=== PATIENT | female | born 1960 | race Caucasian/White ===

== ENCOUNTER 2016-12-18 09:00 | Day surgery (SDC) | payer OTHER ==
[2016-12-18] VITALS (8 sets, daily range): BP systolic 105–145; BP diastolic 56–80; PULSE 63–86; RESP 12–18; O2SAT 93–100
[~2016-12-18] VITALS: Ht 164.5 cm; Wt 91.4 kg
[~2016-12-18 09:00] MED LIST: CALC-1021 PO; CHOL200047 PO; CITA20TA PO; CYAN50002 SL; CeFAZolin Inj 2 GM in IV Premix 1 EACH IV ONE; FISH400C2 PO; ZOV800 PO
[2016-12-18] MEDS ORDERED: Propofol 10,000 mCg/mL 20 mL Inj ONE (09:01)
[2016-12-18] MEDS ORDERED: Dexamethasone 4 mg/mL Inj ONE (09:01)
[2016-12-18] MEDS ORDERED: fentaNYL-PF 50 mCg/mL 2 mL Inj ONE (09:01)
[2016-12-18] MEDS ORDERED: Ondansetron 2 mg/mL 2 mL Inj ONE (09:01)
[2016-12-18] MEDS ORDERED: Lactated Ringer's 1,000 ML IV ONE (09:05)
[2016-12-18] MEDS ORDERED: RANI150T11 PO (09:21)
[2016-12-18] MEDS ORDERED: Lactated Ringer's 500 ML IV PRN (10:42)
[2016-12-18] MEDS ORDERED: Lactated Ringer's 1,000 ML IV SCH (10:42)
--- NOTE | 2016-12-18 10:42 | PCM.HPANE ---
Patient Data Surgeon Admitting Provider: Attending Provider:Kb Kim MD Primary Care Physician:Erika Cox CNM Other Provider:Gurmeet Gallegos Anesthesia Reason for Visit Left Breast Dcis Ht/WT & BMI Height (Feet): 5 Height (Inches): 4.75 Weight (Kilograms): 88.45 Body Mass Index 32.00 Allergies Coded Allergies: Sulfa (Sulfonamide Antibiotics) (Verified Allergy, Unknown, rash, difficulty breathing, 12/17/16) Past Anesthesia History Anesthesia History: Denies:: Abnormal Airway, Anesthesia Reactions ("takes a lot more for me"), Difficult Intubation, Fam Anesthesia Reaction Diabetes History Hx Diabetes?: No MRSA MRSA: No Medications Hypertension Medication: No Home Meds Incl Beta Lacey: No Reported Medications Ranitidine (Zantac)150 Mg [id number] Mg PO DAILY 12/18/16 Acyclovir 800 Mg Sks815 Mg PO DAILY Ref 0 12/04/16 Cyanocobalamin (Vitamin B-12) (Vitamin B-12)5,000 Mcg Tab.subl5,000 Mcg SL 12/04/16 Calcium Carbonate/Vitamin D3 (Oyster Shell Calcium + D Cplt)500 Mg-200 Tablet1 Each PO 12/04/16 Cholecalciferol (Vitamin D3) (Vitamin D3)2,000 Unit Capsule2,000 Unit PO 12/04/16 Fish Oil/Borage/Flax/Om3,6,9#1 (Triple [place] Complex 3-6-9)400 Mg [id number] Mg PO 12/04/16 Citalopram Hydrobromide (Celexa)20 Mg Xowedu20 Mg PO DAILY Ref 0 12/04/16 History History of ENT Problems?: No HEENT History: Denies:: Abnormal Airway Cataracts Difficult Intubation Dysphagia Glaucoma Hearing Problem (some hearing loss) Sinus Problem TMJ Hx of Heart Problems?: No Cardiovascular History: Denies:: AICD Abdominal Aortic Aneurism Atrial Fibrillation Chest Pain Congestive Heart Failure Coronary Artery Disease Edema Heart Murmur Hypertension Irregular Heartbeat Pacemaker Peripheral Vascular Rheumatic Fever Hx of Respiratory Problem?: No Respiratory History: Denies:: Asthma COPD Emphysema Oxygen Administration Pneumonia Tuberculosis Use of C-PAP Machine Use of Inhalers / NEBS Hx Neurologic Problems?: No Neurological History: Denies:: Alzheimer's Disease CVA Dementia Dizziness Headaches Multiple Sclerosis Parkinson's Disease Seizures TIA Hx of GI Problems?: Yes Gastrointestinal History: Positive for:: Heartburn (some heartburn recently) Denies:: Gall Bladder Disease Gastroesphageal Reflux Gastrointestinal Bleeding Hepatitis Hiatal Hernia Liver Disease Hx of Problems?: No Genitourinary History: Denies:: Kidney Stones Urinary Tract Infection Female Hx: Positive for:: Problems with Breasts? (left breast cancer current problem) Denies:: Currently Skin History: Denies:: History Skin Disorders? Pressure Ulcers Hx Musculoskeletal Problems?: No Musculoskeletal History: Denies:: Back Injury Fibromyalgia Joint Replacement Musculoskeletal Trauma Myasthenia Gravis Osteoarthritis Rheumatoid Arthritis Hx of Psycho/Social Problems?: Yes Psycho Social History: Positive for:: Hx Depression Hx Surgeries?: Yes (LEEP, cervical cone ) Hx Any Other Health Problems?: Yes Other History: Positive for:: Cancer (left breast current , hx of cervical 10 years ago) Denies:: Thyroid Disease History Blood Transfusions: Positive for:: Accept Blood Products? Denies:: Blood Transfusions Hx Diabetes: No Hx Alcohol Use: YesAlcoholic Drinks Per Day: 2 glasses weekHx Substance Use: No Smoking Status: Former Smoker Have You Smoked inLast 12 mo: No Stop/Bang S-Snoring: Do You Snore Loudly: No T-Tired: feel tired, fatigued: No O-Obsered: Observed not breath: No P-Blood Pressure: treated: No B- Body Mass Index > 35 kg/m2: No A- Age over 50: Yes N- Neck Large Circumference: No Risk Assessment Category Category 1A: Patient has history of documented sleep apnea, and HAS NOT received any narcotic, sedative or anesthesia administration during this stay. Category 1B: Patient has history of documented sleep apnea, and HAS received any narcotic , sedative or anesthesia administration during this stay Category 2: Patient has SUSPECTED Obstructive Sleep Apnea, and HAS received any narcotic , sedative or anesthesia administration during this stay. Category 3: Patient has SUSPECTED Obstructive Sleep Apnea and HAS NOT received narcotic, sedative or anesthesia administration during this stay. Category 4: Outpatient in Procedural Areas with known sleep apnea or who screen positive for High Risk via the STOP/BANG questionnaire. Exam Exam General Appearance: Alert, Oriented X3, Cooperative, No Acute Distress HEENT/AIRWAY: MP 2 Lungs: Clear to Auscultation, Normal Air Movement Heart: Exam Unremarkable, Regular Rate/Rhythm, No Murmurs/Rubs/Gallops Meds/Labs/Diagnostics Admission Meds Current Medications Lactated Ringer's (Lr) 1,000 ml @ ud STK-MED ONCE IV Last administered on 12/18t 09:05; Start 12/18/16 at 09:05; Stop 12/18/16 at 09:06; Status DC Plan Impression Patient chart reviewed, patient interviewed and anesthestic plan with risks, benefits, and alternatives discussed, and informed consent obtained. ASA Physical Status: ASA2 Mod Systemic Disease Anesthetic Plan: GA Bene/Risks/Altern/Consents: Yes HP Complete Prior to Induction: Yes Miguel Hart MD Dec 18, 2016 09:46
[2016-12-18] MEDS ORDERED: Dexamethasone 4 mg/mL Inj IVPUSH PRN (10:45)
[2016-12-18] MEDS ORDERED: fentaNYL-PF 50 mCg/mL 2 mL Inj IVPUSH PRN (10:45)
[2016-12-18] MEDS ORDERED: Phenylephrine 10,000 mCg/mL Inj IVPUSH PRN (10:45)
[2016-12-18] MEDS ORDERED: EPHEDrine Sulfate 50 mg/mL Inj IVPUSH PRN (10:45)
[2016-12-18] MEDS ORDERED: Ondansetron 2 mg/mL 2 mL Inj IVPUSH PRN (10:45)
[2016-12-18] MEDS ORDERED: HYDROmorphone 1 mg/mL Inj IVPUSH PRN (10:45)
[2016-12-18] MEDS ORDERED: MetoCLOpramide 5 mg/mL 2 mL Inj IVPUSH PRN (10:45)
[2016-12-18] MEDS ORDERED: Bupivacaine-MPF 0.5% W/EPI 30 mL Inj INJ ONE (11:05)
[2016-12-18] MEDS ORDERED: HYDROcodone-APAP 5-325 mg Tablet PO PRN (11:45)
--- NOTE | 2016-12-18 11:46 | PCM.DISURG ---
Surgical Discharge Instruction Date of Service Dec 18, 2016 Dates of Hospitalization Date of Hospital Admission Providers Admitting Physician: Primary Care Physician: Erika Cox CNM Attending Physician: Kb Kim MD Discharge Diagnosis Discharge Diagnosis Left breast DCIS Diet Discharge Diet: No restrictions Activity Discharge Activity-General: No restrictions, Activity as pain allows Dressing and Incisional Care Dressing Care: Allow Steri Stripes to fall off, Remove outer dressing after 24 hrs Hygiene: May shower after (24 hours) Follow Up Plan Follow Up Plan With Dr. Kim in surgery clinic in 10-14 days Call your provider for: Fever (over 101.5), Discharge @ incision, pus discharge Kb Kim MD Dec 18, 2016 11:46
--- NOTE | 2016-12-18 11:53 | PCM.SURGOP ---
Surgical Operative Report Date of Service: Dec 18, 2016 Pre Operative Diagnosis Left breast DCIS Post Operative Diagnosis Same Procedure: Wire localized left partial mastectomy Surgeon and Property Portfolio Officer: Surgeon: Kb Kim MD Assistants: Be Darling PA-C Indication for Procedure 56-year-old woman who had a new finding of heterogeneous calcifications in the left breast 11 o'clock position on screening mammogram. 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 Her breast MRI showed a 3 cm area of enhancement correlating to the biopsy-proven DCIS. There was an additional 6 mm enhancing lesion in the 7 o'clock position of the left breast, and a 1.2 cm enhancing lesion in the 12 o'clock position of the left breast. Ultrasound was performed of both additional areas, which was negative. Six-month follow-up breast MRI was recommended. After discussion of risks and benefits, she agreed to proceed with wire localized left partial mastectomy. Findings: The mammographic lesion was successfully localized. Procedure Details Preoperatively, the patient underwent wire localization in the breast [facility]. She was then brought to the operating room where she underwent smooth induction of general anesthesia with an LMA. She was placed in the supine position with the left arm out, and was prepped and draped in wide sterile fashion. A procedural pause was performed according to the SCOAP checklist, and all were found to be in agreement. A transverse incision was made in the upper inner quadrant of the left breast, encompassing the wire into the incision. Skin flaps were raised superiorly and inferiorly. Circumferential dissection was carried out with electrocautery, using the wire as a guide. Dissection was carried down to the pectoralis muscle as the posterior margin. The left breast tissue was dissected free, oriented with suture, and a specimen radiograph was obtained. This confirmed that the mammographic lesion had been successfully localized. It was sent for permanent pathology labeled as left breast tissue. A separate inferior margin was obtained, because the tip of the wire was close to the inferior aspect of the tissue. This was oriented with suture, and sent for permanent pathology. The cavity was marked with medium hemoclips circumferentially. The breast parenchyma was closed with a single interrupted 3-0 Vicryl suture. The skin incision was closed with a running 4-0 Vicryl subcuticular stitch. Steri- Strips and sterile dressings were applied. At the end of the case all needle and sponge counts were correct 2. The patient was awakened from anesthesia without difficulty, and taken to the recovery room in satisfactory condition, having tolerated the procedure well. Complications There were no periprocedural complications identified. Surgical Specimen Removed: Yes Specimen sent to Pathology: Yes Surgical Specimen description: Left breast tissue. Left breast inferior margin. Anesthetic Plan: GA Grafts, Implants: None Output, Estimated Blood Loss: 50 Blood Administration during onvoa: No Drains: None Catheters: None copies to: Macie Baldwin MD; Erika Cox CNM; Glen Serna MD, Joshua D MD Dec 18, 2016 11:53
--- NOTE | 2016-12-18 12:55 | PCM.ANEP1 ---
Post Anesthesia Phase 1 PACU Phase 1 Assessment Date of Service: Dec 18, 2016 Vital Signs Vital Signs Date Time Temp Pulse Resp B/P Pulse Ox O2 Delivery O2 Flow Rate FiO2 12/18/16 12:31 71 16 106/56 96 Room Air 12/18/16 12:15 36.4 70 12 107/69 94 Room Air 12/18/16 12:00 83 12 119/65 93 Room Air 12/18/16 11:55 85 13 131/70 95 Room Air 12/18/16 11:50 36.1 86 17 145/74 98 Room Air 12/18/16 09:46 36.1 63 18 109/67 96 Room Air Anesthetic Administered: GA Level of Alertness: Awake, talking JIMENEZ's with Equal Strength: Yes Pain: No Nausea or Vomiting: No Oxygen Delivery: Room Air Lungs: Clear to Auscultation, Normal Air Movement Miguel Hart MD Dec 18, 2016 12:55
--- NOTE | 2016-12-18 12:58 | PCM.ANEP2 ---
Post Anesthesia Evaluation ASA/CMS Post Anesthesia VS in Patient's Normal Range?: Yes Resp Stable; Airway Patent?: Yes CV Function & Hydration Stable: Yes Mental Status Recovered?: Yes Pain control Satisfactory?: Yes N/V Control Satisfactory?: Yes Miguel Hart MD Dec 18, 2016 12:58
--- NOTE | 2016-12-19 07:19 | DRSVH ---
SPECIMEN LEFT BREAST: 12/18/2016 CLINICAL: Breast specimen. Correlation is made to exams dated: 12/18/2016 localization, 11/23/2016 stereotactic biopsy, 11/13/2016 mammogram, and 11/12/2016 mammogram - [facility]. A lumpectomy specimen was imaged for the previous biopsy site located in the left breast at 11 o'chay ck posterior depth. This was described on the previous mammography and biopsy reports. IMPRESSION: SPECIMEN The imaged specimen includes a biopsy clip and the distal portion of the localization wire. Waiting for pathology results. A final report will be issued when these become available. This exam was interpreted at Station ID: [id number]. Ed kumar/deep:12/18/2016 12:19:35 copy to: OXANA GAN Additional referring physicians: BRE AVILA
--- NOTE | 2016-12-21 13:44 | PATH ---
SURGICAL PATHOLOGY Attending Physician:Marcel Jorge CASE STATUS: Signed Out PATIENT NAME: BECKI BELTRAN PID: [id number] : 1960 DATE COLLECTED:12/18/2016 20:58 SPECIMEN: 1: Breast, Simple Mastectomy (w/o lymph nodes) 2: Breast Margin CLINICAL HISTORY: LEFT BREAST DUCTAL CARCINOMA IN SITU 1). LEFT BREAST TISSUE SHORT SUPERIOR, LONG LATERAL, OUT 12:25 TIF 11:28 2). INFERIOR MARGIN LEFT BREAST LONG LATERAL, SHORT POSTERIOR, OUT 11:31 TIF 11:32 FINAL DIAGNOSIS: 1.LEFT BREAST, EXCISION WITH WIRE-GUIDED LOCALIZATION: DUCTAL CARCINOMA IN SITU. Size (extent) of DCIS: 5 MM Histologic type: DUCTAL CARCINOMA IN SITU Architectural patterns: CRIBRIFORM Nuclear grade: GRADE 1 (LOW) Necrosis: ABSENT Margins: ALL MARGINS ARE UNINVOLVED BY DCIS. THE CLOSEST MARGIN IS THE MEDIAL MARGIN, 5 MM FROM DCIS. ALL OTHER MARGINS ARE GREATER THAN 10 MM. Pathologic staging: (pTNM, AJCC, 7th ed.): pTis (DCIS), pNX Ancillary studies: ESTROGEN RECEPTOR AND PROGESTERONE RECEPTOR TESTING WAS PERFORMED ON THE PRIOR CORE BIOPSY, SEE THAT REPORT FOR RESULTS 2.LEFT BREAST, INFERIOR MARGIN: BENIGN BREAST TISSUE WITH CALCIFICATIONS AND FIBROCYSTIC CHANGES (CYSTIC DUCTS, APOCRINE METAPLASIA). NO IN SITU OR INVASIVE CARCINOMA IDENTIFIED. ICD10 CODE D05.12 GROSS DESCRIPTION: The specimens are received in formalin, labeled with the patient's name, and sublabeled as the following: (1) left breast tissue, short-sup, long-lat; (2) inferior margin left breast, long-lat, short-post. (1) The specimen consists of a piece of breast tissue (5.2 cm AP, 5.2 cm SI, 3.2 cm) with no overlying skin. The specimen is oriented with 2 black sutures (short-superior, long-lateral). A localization wire is present. The specimen is serially sectioned AP into 22 slices with the anterior and posterior resection margins as slices #1 and #22 prospective. The breast tissue is fatty and contains multiple mendosa-white solid firm irregular areas (0.3 x 0.2 x 0.2 cm-1.8 x 1.5 x 0.8 cm) within slices #7-#19. The areas are 1.4 cm from the anterior, 0.7 cm from the posterior, 1.7 cm from the superior, 0.1 cm from the inferior, 0.7 cm in the medial, and 0.4 cm from the lateral resection margins. Ink code: purple-anterior; yellow-posterior; black-superior; orange-inferior; green-medial; blue-lateral. Section code: (1A) anterior resection margin, perpendicularly sectioned, entirely submitted; (1B-1C) slice #2, bisected and submitted SI, entirely submitted; (1D-1E) slice #3, bisected and submitted SI, entirely submitted; (1F-1H) slice #4, trisected and submitted SI, entirely submitted; (1I-1K) slice #5, trisected and submitted SI, entirely submitted; (1L-1N) slice #6, trisected and submitted SI, entirely submitted; (1O-1Q) slice #7, trisected and submitted SI, entirely submitted; (1R-1T) slice #8, trisected and submitted SI, entirely submitted; (1U) slice #9, call center support representative; (1V, 1W) slice #10, call center support representative; (1X) slice #11, call center support representative; (1Y) slice #12, call center support representative; (1Z) slice #13, call center support representative; (1AA) slice #14, call center support representative; (1BB-1DD) slice #15, trisected and submitted SI, entirely submitted; (1EE) slice #16, call center support representative; (1FF) slice #17, call center support representative; (1GG) slice #18, call center support representative; (1HH) slice #19, call center support representative; (1II) slice #20, call center support representative; (1JJ) posterior resection margin, perpendicularly sectioned, call center support representative. Note: This specimen was reviewed by Dr. Alena Macias. Additional sections: (1KK-1LL) slice #17, remaining tissue; (1MM-1NN) slice #18, remaining tissue; (1OO) slice #19, remaining tissue. Slices #17-#19 are entirely submitted. 12/20/16 JM (2) The specimen consists of a piece of breast tissue (4.3 cm AP, 1.4 cm SI, 4.9 cm ML) with no overlying skin. The specimen is oriented with 2 black sutures (long-lateral, short-posterior). No localization wire is present. The breast tissue is fatty and focally irregularly fibrous (2.5 x 1.5 x 1.2 cm). The fibrous area is 3.7 cm from the medial and 0.1 cm-less than 0.1 cm from all other resection margins. No defined mass is identified. Ink code: purple-anterior; yellow-posterior; black-superior; orange-inferior; green-medial; blue-lateral. Section code: (2A-2M) breast tissue, saline sectioned and submitted ML. Specimen entirely submitted. Note: Approximate total fixation time in formalin for both specimens-31 hours calculated using a collection date of December 18, 2016 with times in fixative of 1128 and 1132. 12/19/16 JM MICRO DESCRIPTION: See diagnosis. ICD-9 CODES: CPT CODES: 1: 28665 2: 17008 Electronically Signed Out Leeanne Angulo MD Located Within [facility] Pathology [facility] [address], [place] [address] Technical component performed at [facility], [address] [place] [address] Ave[address], [place], [address]
== END 2016-12-18 23:59 | disposition home or self-care (01) ==
LOC: SAS 09:00
PROVIDERS: ATTEND Student in an Organized Health Care Education/Training Program
DX: C50.212 Malignant neoplasm of upper-inner quadrant of left female breast (principal); F32.9 Major depressive disorder, single episode, unspecified; F41.9 Anxiety disorder, unspecified; Z85.41 Personal history of malignant neoplasm of cervix uteri; Z87.891 Personal history of nicotine dependence; Z17.0 Estrogen receptor positive status [ER+]
CPT/HCPCS: 19301; 76098; J0690; J1100; J2250; J2405; J3010; J7120